=== PATIENT | male | born 1955 | race Caucasian/White ===

== ENCOUNTER 2016-07-07 21:14 | Emergency (ER) | payer MEDICARE, OTHER ==
[~2016-07-07] VITALS: Ht 165.1 cm; Wt 57.0 kg
[2016-07-07 21:16] VITALS: BP 134/85; PULSE 98; RESP 16; TEMP 98.1; O2SAT 94
== END 2016-07-07 22:33 | disposition left against medical advice (07) ==
LOC: NED 21:14
DX: Z03.89 Encounter for observation for other suspected diseases and conditions ruled out (principal)
CPT/HCPCS: 99281